=== PATIENT | male | born 1960 | race African-American/Black ===

== ENCOUNTER → 2024-11-04 | Outpatient (CLI) | payer BC, SELFPAY ==
--- NOTE | 2024-11-04 08:12 | US_ITS ---
STUDY: ABDOMINAL ULTRASOUND - RIGHT UPPER QUADRANT; ELASTOGRAPHY REASON FOR VISIT: Male, 64 years old. BERGMAN TECHNIQUE: Ultrasound evaluation of the right upper quadrant was performed with real-time and static yates-scale imaging. Point quantification shear wave elastography was performed (Handup). TECHNICAL QUALITY: Adequate. COMPARISON: None. FINDINGS: Liver: The liver measures 16 cm. There is increased echogenicity consistent with fatty infiltration. Area of focal fatty sparing is seen in the region of the gallbladder fossa. The bile ducts are within normal limits. There is hepatic color flow. The direction of portal flow is hepatopetal. There is no demonstrated mass lesion. Median liver stiffness measured 9.5 kPa. Gallbladder: Normal distended gallbladder. The gallbladder wall measures 2 mm. There is a negative sonographic Carlson''s sign. There is no pericholecystic fluid. There are no gallstones. Common Bile Duct (C.B.D.): The common bile duct measures 3 mm. Pancreas: There is increased echogenicity of the pancreas. There is no demonstrated pancreatic mass or cyst. Right Kidney: Normal size of the right kidney. The right kidney measures 9.8 cm x 5.5 cm x 5.7 cm. Normal renal cortex. The right cortex measures 1.7 cm. There is no demonstrated renal mass or cyst. There is no right hydronephrosis. US/ABD Limited w/ Elastography IMPRESSION: 1. Liver stiffness measures 9.5 kPa compatible with F2-F3 (Mild to moderate liver fibrosis) Metavir score. 2. Fat infiltration of liver with focal fatty sparing. Electronically Signed: Wil Almazan MD at 14:18 EST ,
== END | disposition home or self-care (01) ==
PROVIDERS: PCP Family Medicine; Referring Provider Family Medicine; Visit Provider Family Medicine
DX: K75.81 Nonalcoholic steatohepatitis (NASH) (principal)
CPT/HCPCS: 76705; 76981

== ENCOUNTER 2024-12-16 11:12 | Emergency (ER) | payer BC, SELFPAY ==
[2024-12-16 11:13] VITALS: BP 123/74; PULSE 96; RESP 20; TEMP 36.4; O2SAT 97; BMI 24.7
--- NOTE | 2024-12-16 12:15 | EX.ED.DYSGE1 ---
HPI History of Present Illness Chief Complaint: Hyperglycemia Narrative Narrative: 64-year-old male presents with his because of abnormal blood test. He has history of hypertension and prediabetes, already takes metformin. Over the last few weeks if not longer he has been complaining of dry mouth, and urinary frequency. He also has polydipsia. He saw his primary care provider Dr. Chin yesterday and laboratory work was drawn. It was reported that he had blood sugars in the 700s. He denies any respiratory problems, no nausea or vomiting, no abdominal pain. [facility] Medical History (Updated 12/16/24 @ 14:26 by Isra Mahoney MD) Essential hypertension Internal hemorrhoids without mention of complication Insomnia Esophageal reflux Diaphragmatic hernia without mention of obstruction or gangrene Acute gastritis without mention of hemorrhage Home Medications ?Medication ?Instructions ?Recorded ?Last Taken ?Type amlodipine 10 mg tablet 10 mg PO DAILY 04/19/17 04/26/17 08:00 History lisinopril 40 mg tablet 40 mg PO DAILY 04/19/17 04/26/17 08:00 History meloxicam 15 mg tablet 15 mg PO DAILY 04/19/17 Unknown History dorfqgfm-xaj-htgqx acid 0.4 1 ea PO DAILY 04/19/17 Unknown History mg-lycopene 300 mcg-lutein 250 mcg tablet rabeprazole 20 mg tablet,delayed 20 mg PO DAILY PRN 04/19/17 04/26/17 08:00 History release sertraline 100 mg tablet 100 mg PO DAILY 04/19/17 Unknown History Glucometer #1 ea 12/16/24 Unknown Rx Glucometer Strips (Box) #1 ea 12/16/24 Unknown Rx atorvastatin 20 mg tablet 20 mg PO DAILY 12/16/24 Unknown History doxepin 75 mg capsule 75 mg PO QHS 12/16/24 Unknown History duloxetine 30 mg capsule,delayed 30 mg PO DAILY 12/16/24 Unknown History release glimepiride 2 mg tablet 2 mg PO DAILY #30 tabs 12/16/24 Unknown Rx metformin 500 mg tablet,extended 500 mg PO BID 12/16/24 Unknown History release 24 hr metoprolol succinate 25 mg 25 mg PO DAILY 12/16/24 Unknown History tablet,extended release 24 hr omeprazole 40 mg capsule,delayed 40 mg PO DAILY 12/16/24 Unknown History release Allergy/AdvReac Type Severity Reaction Status Date / Time No Known Allergies Allergy Verified 12/16/24 11:15 Family History Mother Diabetes Hypertension Surgical History History of foot surgery History of esophagogastroduodenoscopy (EGD) S/P colonoscopy Hx of umbilical hernia repair Social History Smoking Status: Never smoker second hand exposure: No alcohol intake: current alcohol intake frequency: 3 or more drinks per day Alcohol type: beer substance use type: does not use caffeine: No what type of physical activity do you participate in: none frequency: does not exercise seatbelt use: always ROS ROS ED ROS Narrative Constitutional: No fever, no chills. HEENT: No sore throat. No neck pain. No blurry vision.. No rhinorrhea. Positive dry mouth Cardiovascular: No chest pain. No palpitations. No pedal edema. Respiratory: No cough, no shortness of breath. Abdominal: No abdominal pain. No nausea. No vomiting. Genitourinary: No dysuria. No hematuria. Positive polyuria. Musculoskeletal: No myalgias. No arthralgias. Neurologic: No headaches. No dizziness. No lightheadedness. EXAM Physical Exam Narrative Exam Narrative: Afebrile. Vital signs noted. Nontoxic-appearing. PERRL, EOMI. Dry mucous membranes/tacky mucous membranes. Neck soft and supple. Cardiovascular examination regular rate and rhythm. Lungs are clear to auscultation bilaterally. Abdomen soft nontender without guarding or rebound. Positive bowel sounds. Neurological examination nonfocal and nonlateralizing. Const Vital Signs: 12/16/24 11:13 12/16/24 12:36 12/16/24 13:00 Temperature 97.5 F L Temperature Source Temporal Pulse Rate 96 85 Respiratory Rate 20 H 12 Respiratory Effort Normal Non-Labored Respiratory Pattern Normal Blood Pressure 123/74 H 115/75 Blood Pressure Mean 90 87 Pulse Ox 97 96 Oxygen Delivery Method Room Air 12/16/24 14:57 Temperature Temperature Source Pulse Rate 80 Respiratory Rate 15 Respiratory Effort Respiratory Pattern Blood Pressure 122/71 H Blood Pressure Mean 88 Pulse Ox 95 Oxygen Delivery Method MDM MDM MDM Narrative Medical decision making narrative: Differential diagnosis includes but not limited to new onset diabetes with hyperglycemia versus diabetic ketoacidosis versus urinary tract infection. Given his reported elevated blood sugars in the 700s from laboratory work yesterday, I favor new onset diabetes. Patient bolused normal saline 2 L intravenously and DKA workup was pursued. EKG obtained and interpreted by myself independently as normal sinus rhythm at 78 bpm without ectopy or acute ST changes. No STEMI. I reviewed his laboratory work and he has normal white count of 4.5 with hemoglobin 13.6, hematocrit 40.4, platelet count normal at 166. CMP is remarkable for glucose of 403 but a normal anion gap of 9. Although he has small ketones/acetone, I doubt diabetic ketoacidosis. Alk phos slightly elevated at 161 which I think is nonspecific. Urinalysis is negative for infection with 0 WBCs. I do not feel antibiotics are indicated. After 1 L of fluids, blood glucose is now 294. He will be bolused a second liter and his blood sugar rechecked. His second blood sugar is 260. I discussed patient with his primary care provider, Dr. Chin, who states he started him on metformin 500 mg twice a day but would like Amaryl 2 mg once daily ordered. It was not felt that he requires observation or admission at this time but he should follow-up with his primary care provider either tomorrow or early next week on Saturday. I will write him for a glucometer and strips as well. He should check his blood sugar. He was also warned of the risk of hypoglycemia so he should take his Amaryl in the morning. Disposition is discharged in stable condition. History & Record Review Discussion w/independent historian: Patient and Family Lab Data Attestation: I reviewed the patient's lab results. Labs: Laboratory Results - last 24 hr 12/16/24 12/16/24 12/16/24 12:04 12:24 12:29 WBC 4.5 RBC 4.67 Hgb 13.6 Hct 40.4 MCV 86.5 MCH 29.1 MCHC 33.7 RDW Std Deviation 40.2 RDW Coeff of Tarik 12.8 Plt Count 166 MPV 9.8 Immature Gran % (Auto) 0.200 Neut % (Auto) 62.8 Lymph % (Auto) 24.6 [place] % (Auto) 11.1 H Eos % (Auto) 1.1 Baso % (Auto) 0.2 Absolute Neuts (auto) 2.8 Absolute Lymphs (auto) 1.11 Nucleated RBC % 0 Sodium 136 Potassium 4.0 Chloride 100 Carbon Dioxide 27.0 Anion Gap 9 BUN 14 Creatinine 1.00 Estim Creat Clear Calc 67.34 Est GFR (MDRD) Af Amer 97 Est GFR (MDRD) Non-Af 80 BUN/Creatinine Ratio 14.0 Glucose 403 H Calcium 9.1 Total Bilirubin 0.60 AST 27 ALT 51 Alkaline Phosphatase 161 H Total Protein 7.4 Albumin 3.4 Globulin 4.0 Albumin/Globulin Ratio 0.8 L Urine Color Yellow Urine Clarity Clear Urine pH 6.0 Ur Specific [place] 1.010 Urine Protein Negative Urine Glucose (UA) 1000 H Urine Ketones 5 H Urine Occult Blood Negative Urine Nitrite Negative Urine Bilirubin Negative Urine Urobilinogen Normal Ur Leukocyte Esterase Negative Urine RBC 0 SEEN Urine WBC 0 SEEN Ur Squamous Epith Cells 0-5 SEEN Urine Bacteria RARE Urine Mucus 0 SEEN Acetone Level SMALL H POC Glucose 400 H 12/16/24 12/16/24 13:20 14:28 WBC RBC Hgb Hct MCV MCH MCHC RDW Std Deviation RDW Coeff of [place] Plt Count MPV Immature Gran % (Auto) Neut % (Auto) Lymph % (Auto) [place] % (Auto) Eos % (Auto) Baso % (Auto) Absolute Neuts (auto) Absolute Lymphs (auto) Nucleated RBC % Sodium Potassium Chloride Carbon Dioxide Anion Gap BUN Creatinine Estim Creat Clear Calc Est GFR (MDRD) Af Amer Est GFR (MDRD) Non-Af BUN/Creatinine Ratio Glucose Calcium Total Bilirubin AST ALT Alkaline Phosphatase Total Protein Albumin Globulin Albumin/Globulin Ratio Urine Color Urine Clarity Urine pH Ur Specific [place] Urine Protein Urine Glucose (UA) Urine Ketones Urine Occult Blood Urine Nitrite Urine Bilirubin Urine Urobilinogen Ur Leukocyte Esterase Urine RBC Urine WBC Ur Squamous Epith Cells Urine Bacteria Urine Mucus Acetone Level POC Glucose 294 H 265 H Management Discussion w/another healthcare provider: PCP (Dr. Chin) Discharge Plan Triage Chief Complaint: Hyperglycemia ED Provider: Isra Mahoney Dx/Rx/DC Orders Clinical Impression: Hyperglycemia, New onset type 2 diabetes mellitus Instructions: ED Diabetes- Overview, ED Diabetic Hyperglycemia, ED Diet: Diabetes Prescriptions: New glimepiride 2 mg tablet 2 mg PO DAILY Qty: 30 0RF (DME) Glucometer See Rx Instructions .Route .MEDSUPPLY Qty: 1 0RF Rx Instructions: Glucometer for new onset diabetes (DME) Glucometer Strips (Box) See Rx Instructions .Route .MEDSUPPLY Qty: 1 0RF Rx Instructions: As directed No Action rabeprazole 20 MG tablet,delayed release (DR/EC) 20 mg PO DAILY MDD INDIGESTION meloxicam 15 MG tablet 15 mg PO DAILY sertraline 100 MG tablet 100 mg PO DAILY amlodipine 10 MG tablet 10 mg PO DAILY lisinopril 40 MG tablet 40 mg PO DAILY [id number]-DB-lycopen-lutein 1 EACH tablet 1 ea PO DAILY atorvastatin 20 mg tablet 20 mg PO DAILY doxepin 75 mg capsule 75 mg PO QHS omeprazole 40 mg capsule,delayed release(DR/EC) 40 mg PO DAILY metoprolol succinate 25 mg tablet extended release 24 hr 25 mg PO DAILY metformin 500 mg tablet extended release 24 hr 500 mg PO BID duloxetine 30 mg capsule,delayed release(DR/EC) 30 mg PO DAILY Primary Care Provider: Johnathon Chin Referrals: Johnathon Chin MD [Primary Care Provider] - 3-5 Days Activity Restrictions/Additional Instructions: Follow-up with your primary care provider either tomorrow or early next week on Saturday. Take medication as prescribed. Check your blood sugars in the morning and before bed and keep a log of them. Make sure you are eating 3 meals daily. Return with new or worsening symptoms. Print Language: Mohawk Disposition Disposition: Home, Self Care Discharge Date/Time: 12/16/24 15:05
[2024-12-16] MEDS: 0.9% Normal Saline (1000mL) 1,000 ML 999 ML IV ×2 (12:22→13:39)
--- NOTE | 2024-12-16 12:26 | ED.RN ---
no old ekg
[2024-12-16 12:42] LABS: Bedside Glucose 400 mg/dL (74-106)
[2024-12-16 12:43] LABS: Color, Urine Yellow (Yellow); Glucose, Dipstick 1000 mg/dl (Normal); Ketone-Dipstick 5 mg/dl (Negative); Leukocyte Esterase-Dipstick Negative /ul (Negative); Mucous, Urine 0 SEEN /hpf (<or=2+); Nitrite-Dipstick Negative (Negative); Occult Blood-Urine Negative /ul (Negative); Protein-Dipstick Negative (Negative); Red Blood Cells-Urine 0 SEEN /hpf (0-5); Urine Bilirubin Dipstick Negative (Negative); Urine Clarity Clear (Clear); Urine Urobilinogen Normal (Normal); White Blood Cells 0 SEEN /hpf (0-5)
[2024-12-16 12:51] LABS: Bacteria RARE /hpf (None Seen); Squamous Epithelial Cells - UA 0-5 SEEN /hpf (0-5)
[2024-12-16 12:52] LABS: Absolute Lymphocyte Count 1.11 X10^3/uL (0.83-4.51); Absolute Neutrophil Count 2.8 X10^3/uL (2.0-7.7); Basophil# 0.01 X10^3/uL; Basophil% 0.2 % (0-1); Eosinophil# 0.05 X10^3/uL; Eosinophils% 1.1 % (0-5); Hematocrit 40.4 % (40-54); Hemoglobin 13.6 g/dL (13.0-16.5); Lymphocyte # 1.11 X10^3/ul (0.83-4.51); Lymphocyte % 24.6 % (19-41); Mean Corp Hgb Conc 33.7 g/dL (32-36); Mean Corpuscular Hgb 29.1 pg (27.0-32.0); Mean Corpuscular Volume 86.5 fL (80-94); Mean Platelet Vol. 9.8 fl (6.2-12.0); Monocyte% 11.1 % (0-10); NRBC Flagged by Analyzer 0 % (0-5); Neutrophil # 2.84 X10^3/uL (2.7-7.7); Neutrophil % 62.8 % (47-70); Platelet Count 166 K/mm3 (150-450); RBC Distribution Width CV 12.8 % (11.6-14.6); RBC Distribution Width SD 40.2 fl (35.1-43.9); Red Blood Count 4.67 M/mm3 (4.6-6.2); White Blood Count 4.5 K/mm3 (4.4-11.0)
[2024-12-16 13:00] VITALS: BP 115/75; PULSE 85; RESP 12; O2SAT 96
[2024-12-16 13:03] LABS: ALB/GLOB Ratio 0.8 RATIO (0.9-2.4); AST(SGOT) 27 U/L (15-37); Alanine Aminotransfer ALT/SGPT 51 U/L (16-61); Albumin, Serum 3.4 g/dL (3.2-5.0); Alkaline Phosphatase 161 U/L (45-117); Anion Gap 9 (5-15); BUN 14 mg/dL (7-18); Calcium,Total 9.1 mg/dL (8.5-10.1); Chloride 100 mmol/L (98-107); EST Glomerular Filtration Rate 80 mL/min (>60); Est Glom Filt Rate - Afr Amer 97 mL/min (>60); Estimated Creatinine Clearance 67.34 ml/min; Glucose 403 mg/dL (74-106); Protein, Total 7.4 g/dL (6.4-8.2); Sodium Level 136 mmol/L (136-145)
[2024-12-16 13:38] LABS: Bedside Glucose 294 mg/dL (74-106)
[2024-12-16 14:46] LABS: Bedside Glucose 265 mg/dL (74-106)
[2024-12-16 14:57] VITALS: BP 122/71; PULSE 80; RESP 15; O2SAT 95
[2024-12-16 15:11] LABS: Bedside Glucose 260 mg/dL (74-106)
== END 2024-12-16 15:05 | disposition home or self-care (01) ==
PROVIDERS: Emergency Provider Emergency Medicine; PCP Family Medicine; Referring Provider Emergency Medicine; Visit Provider Emergency Medicine
DX: R79.9 Abnormal finding of blood chemistry, unspecified (principal); E11.65 Type 2 diabetes mellitus with hyperglycemia; Z79.84 Long term (current) use of oral hypoglycemic drugs; I10 Essential (primary) hypertension; Z79.899 Other long term (current) drug therapy
CPT/HCPCS: 80053; 81001; 82009; 82962; 85025; 93005; 96360; 96361; 99284; A4216